=== PATIENT | female | born 1960 | race Two or more races ===

== ENCOUNTER 2024-05-25 06:37 | Emergency (ER) | payer OTHER ==
[~2024-05-25] VITALS: Ht 167.6 cm; Wt 84.0 kg
[2024-05-25] MEDS: SODIUM CHLORIDE 0.9% 1,000 ML IV ONE (07:30)
[2024-05-25 07:33] VITALS: TEMP 98.4
[2024-05-25 07:42] LABS: Urine Bacteria None Seen /hpf (None Seen)
[2024-05-25] MEDS: KETOROLAC TROMETH 30 MG/ML 1ML VIAL IV ONE (07:47)
[2024-05-25 07:55] LABS: Urine Blood TRACE /uL (Negative); Urine Clarity Clear (Clear); Urine Color Light-Yellow (Yellow); Urine Hyaline Cast FEW /lpf (0 - 2); Urine Mucus FEW (None Seen); Urine Protein, UAD Negative (Negative); Urine Specific Gravity 1.015 (1.001-1.035); Urine Urobilinogen Normal (Negative); Urine WBC 12 /hpf (0 - 5); Urine pH 5.5 (5.0-9.0)
[2024-05-25 08:06] LABS: Basophils # (auto) 0 10 ^3/uL (0-0.2); Basophils % (auto) 0.4 % (0.0-2.0); Eosinophils # (auto) 0.1 10 ^3/uL (0-0.8); Eosinophils % (auto) 1.3 % (0.0-7.0); Hemoglobin 13.2 g/dL (12.2-16.2); Lymphocytes # (auto) 1.7 10 ^3/uL (0.4-5.4); Lymphocytes % (auto) 20.1 % (10.0-50.0); Mean Corpuscular Hemoglobin 32.1 pg (28.0-32.0); Mean Corpuscular Hgb Conc. 34.7 g/dL (32.0-36.0); Mean Corpuscular Volume 92.5 fL (80.0-100.0); Monocytes # (auto) 0.6 10 ^3/uL (0-1.3); Monocytes % (auto) 7.3 % (0.0-12.0); Neutrophils # (auto) 6.1 10 ^3/uL (1.6-8.6); Neutrophils % (auto) 70.9 % (37.0-80.0); Platelet Count (auto) 362 10^3/uL (140-450); Red Blood Cells 4.11 10^6/uL (4.0-5.20); Red Cell Distribution Width 12.8 % (11.8-14.3); White Blood Cell 8.7 10^3/uL (4.4-10.8)
[2024-05-25 08:25] LABS: Alanine Aminotransferase 14 U/L (7-40); Albumin 4.1 g/dL (3.2-4.8); Alkaline Phosphatase 82 U/L (46-116); Anion Gap 9 (5-15); Aspartate Aminotransferase 16 U/L (13-40); BUN/Creatinine Ratio 8.6 (10.0-20.0); Blood Urea Nitrogen 11 mg/dL (9-23); Calcium 9.5 mg/dL (8.7-10.4); Carbon Dioxide 22 mmol/L (20-31); Chloride 108 mmol/L (98-107); Glucose 102 mg/dL (74-106); Potassium 4.1 mmol/L (3.5-5.1); Sodium 139 mmol/L (136-145)
[2024-05-25 08:26] LABS: Bilirubin, Total 0.3 mg/dL (0.2-1.0); Total Protein 7.1 g/dL (5.7-8.2)
[2024-05-25] MEDS: ONDANSETRON HCL 4 MG/2 ML VIAL IV ONE (08:48)
[2024-05-25] MEDS: HYDROmorphone HCL 2 MG/ML VL/or syr IV ONE (08:48)
[2024-05-25 09:05] VITALS: PULSE 62; RESP 17; O2SAT 100
[2024-05-25 10:34] LABS: Lipase 47 U/L (12-53)
[2024-05-25 11:09] LABS: Blood Alcohol < 3.0 mg/dL (<10)
[2024-05-25] MEDS ORDERED: TAMS-35 PO (11:36)
[2024-05-25] MEDS ORDERED: HYDR-4798 PO (11:36)
[2024-05-25 11:43] VITALS: BP 126/70; PULSE 66; RESP 16; O2SAT 98
[2024-05-25] MEDS ORDERED: NITR-87 PO (13:07)
[2024-05-25] MEDS ORDERED: CIP500T PO ×2 (13:10)
== END 2024-05-25 11:44 | disposition home or self-care (01) ==
LOC: EDBD 06:37 → ER 06:37
DX: N20.0 Calculus of kidney (principal); N30.00 Acute cystitis without hematuria; I10 Essential (primary) hypertension; Z88.0 Allergy status to penicillin
CPT/HCPCS: 36415; 74176; 80053; 80320; 81001; 83690; 85025; 93005; 96361; 96374; 96375; 99285; J1171; J1885; J2405; J7030

== ENCOUNTER 2024-05-30 13:32 | Emergency (ER) | payer OTHER ==
[~2024-05-30] VITALS: Ht 167.6 cm; Wt 84.0 kg
[~2024-05-30 13:32] MED LIST: CIP500T PO; HYDR-4798 PO; NITR-87 PO; TAMS-35 PO
[2024-05-30 14:34] LABS: Basophils # (auto) 0 10 ^3/uL (0-0.2); Basophils % (auto) 0.3 % (0.0-2.0); Eosinophils # (auto) 0.1 10 ^3/uL (0-0.8); Eosinophils % (auto) 0.6 % (0.0-7.0); Hematocrit 39.1 % (36.0-46.0); Hemoglobin 13.3 g/dL (12.2-16.2); Lymphocytes # (auto) 1.3 10 ^3/uL (0.4-5.4); Lymphocytes % (auto) 14.9 % (10.0-50.0); Mean Corpuscular Hemoglobin 31.1 pg (28.0-32.0); Mean Corpuscular Hgb Conc. 33.9 g/dL (32.0-36.0); Mean Corpuscular Volume 91.7 fL (80.0-100.0); Monocytes # (auto) 0.6 10 ^3/uL (0-1.3); Monocytes % (auto) 6.4 % (0.0-12.0); Neutrophils # (auto) 6.8 10 ^3/uL (1.6-8.6); Neutrophils % (auto) 77.8 % (37.0-80.0); Nucleated Red Blood Cells % 0.1 %; Platelet Count (auto) 367 10^3/uL (140-450); Red Blood Cells 4.26 10^6/uL (4.0-5.20); Red Cell Distribution Width 13.2 % (11.8-14.3); White Blood Cell 8.7 10^3/uL (4.4-10.8)
[2024-05-30] MEDS: SODIUM CHLORIDE 0.9% 500 ML IVB ONE (14:34)
[2024-05-30] MEDS: MORPHINE SULFATE 4 MG/ML SYR/VIAL IV ONE (14:36)
[2024-05-30] MEDS: ONDANSETRON HCL 4 MG/2 ML VIAL IV ONE (14:36)
[2024-05-30 14:39] VITALS: PULSE 61; RESP 18
[2024-05-30 14:45] LABS: Alanine Aminotransferase 11 U/L (7-40); Albumin 4.4 g/dL (3.2-4.8); Alkaline Phosphatase 79 U/L (46-116); Anion Gap 8 (5-15); Aspartate Aminotransferase 15 U/L (13-40); BUN/Creatinine Ratio 10.6 (10.0-20.0); Blood Urea Nitrogen 15 mg/dL (9-23); Calcium 9.5 mg/dL (8.7-10.4); Carbon Dioxide 23 mmol/L (20-31); Chloride 106 mmol/L (98-107); Glucose 118 mg/dL (74-106); Lipase 41 U/L (12-53); Potassium 3.8 mmol/L (3.5-5.1); Sodium 137 mmol/L (136-145)
[2024-05-30 14:46] LABS: Bilirubin, Total 0.8 mg/dL (0.2-1.0); Total Protein 7.4 g/dL (5.7-8.2)
[2024-05-30 15:56] LABS: Urine Bacteria None Seen /hpf (None Seen)
[2024-05-30 16:17] LABS: Urine Blood TRACE /uL (Negative); Urine Clarity Clear (Clear); Urine Color Yellow (Yellow); Urine Protein, UAD TRACE (Negative); Urine Specific Gravity 1.016 (1.001-1.035); Urine Urobilinogen Normal (Negative); Urine WBC 2 /hpf (0 - 5)
[2024-05-30 16:45] VITALS: BP 105/52; PULSE 55; RESP 16; TEMP 98; O2SAT 98
== END 2024-05-30 16:46 | disposition home or self-care (01) ==
LOC: ER 13:34
DX: N20.0 Calculus of kidney (principal); I10 Essential (primary) hypertension; Z88.0 Allergy status to penicillin; Z98.51 Tubal ligation status
CPT/HCPCS: 36415; 74176; 80053; 81001; 83690; 85025; 96361; 96374; 96375; 99285; J2270; J2405; J7040